=== PATIENT | female | born 1945 | race Asian ===

== ENCOUNTER 2018-11-06 05:30 | Day surgery (SDC) | payer OTHER ==
[~2018-11-06] VITALS: Ht 152.4 cm; Wt 65.0 kg
[~2018-11-06 05:30] MED LIST: AMLO10TA55 PO; ASPI81 PO; BENA20 PO; SIMV-261 PO
[2018-11-06] MEDS ORDERED: POVIDONE-IODINE 10% 15 ML SOLUTION UD TP ONE (05:31)
[2018-11-06] MEDS ORDERED: TETRACAINE HCL VISCOUS 0.5% 0.6 ML OPHTHALMIC SOLUTION OU ONE (05:31)
[2018-11-06] MEDS ORDERED: FentaNYL CITRATE-PF 100 MCG/2 ML VIAL IVP ONE (05:31)
[2018-11-06] MEDS ORDERED: HYALURONATE SOD/CHONDROITIN SOD 0.5 ML VIAL IO ONE (05:31)
[2018-11-06] MEDS ORDERED: DEXAMETHASONE SOD PHOS 4 MG/ML VIAL IVP ONE (05:31)
[2018-11-06] MEDS ORDERED: MIDAZOLAM HCL 2 MG/2 ML VIAL IVP ONE (05:31)
[2018-11-06] MEDS ORDERED: HYALURONATE SODIUM 12 MG/ML 0.8 ML SYRINGE IO ONE (05:31)
[2018-11-06] MEDS ORDERED: LIDOCAINE/PF 1% 2 ML VIAL IARTIC ONE (05:31)
[2018-11-06] MEDS ORDERED: MOXIFLOXACIN HCL 0.5% 3 ML OPHTHALMIC SOLUTION OS ONE (06:00)
[2018-11-06] MEDS ORDERED: DICLOFENAC SODIUM 0.1% 2.5 ML OPHTHALMIC SOLUTION OS ONE (06:00)
[2018-11-06] MEDS ORDERED: RINGERS SOLUTION,LACTATED 500 ML IV ONE ×2 (06:00→06:03)
[2018-11-06] MEDS ORDERED: 0.9% SODIUM CHLORIDE 10 ML SYRINGE IVP PRN (06:00)
[2018-11-06] MEDS ORDERED: DICLOFENAC SODIUM 0.1% 2.5 ML OPHTHALMIC SOLUTION ONE (06:27)
[2018-11-06] MEDS ORDERED: MOXIFLOXACIN HCL 0.5% 3 ML OPHTHALMIC SOLUTION ONE (06:28)
[2018-11-06] MEDS ORDERED: TROPICAMIDE 1% 2 ML OPHTHALMIC SOLUTION ONE (06:28)
[2018-11-06] MEDS ORDERED: PHENYLEPHRINE HCL 2.5% 2 ML OPHTHALMIC SOLUTION ONE (06:28)
[2018-11-06] MEDS: TROPICAMIDE 1% 2 ML OPHTHALMIC SOLUTION OS SCH ×2 (06:42→06:48)
[2018-11-06] MEDS: PHENYLEPHRINE HCL 2.5% 2 ML OPHTHALMIC SOLUTION OS SCH ×2 (06:42→06:49)
== END 2018-11-06 10:15 | disposition home or self-care (01) ==
LOC: SURGERY 05:30
PROVIDERS: ATTEND Specialist
DX: H25.12 Age-related nuclear cataract, left eye (principal); E78.00 Pure hypercholesterolemia, unspecified; I10 Essential (primary) hypertension; H25.13 Age-related nuclear cataract, bilateral; M17.10 Unilateral primary osteoarthritis, unspecified knee; Z79.82 Long term (current) use of aspirin
CPT/HCPCS: 66984; 93005; C1780; J1100; J2250; J3010; J3490 ×2; J7120

== ENCOUNTER → 2019-11-27 | Outpatient (CLI) | payer OTHER ==
[~2019-11-27] MED LIST changes: +ASPI-728 PO; -ASPI81 PO; -BENA20 PO; +BENA20TA11 PO
== END | disposition home or self-care (01) ==
LOC: PUC 14:09
DX: N39.0 Urinary tract infection, site not specified (principal)
CPT/HCPCS: 87086

== ENCOUNTER 2022-11-16 10:19 | Emergency (ER) | payer OTHER ==
[~2022-11-16] VITALS: Ht 152.4 cm; Wt 59.1 kg
[~2022-11-16 10:19] MED LIST changes: +ASPI-1450 PO; -ASPI-728 PO; -BENA20TA11 PO; +BENA20TA83 PO
[2022-11-16] MEDS ORDERED: LETR2.5 PO (10:23)
[2022-11-16] MEDS ORDERED: ATOR20TA86 PO (10:23)
[2022-11-16] MEDS ORDERED: CALC-1124 PO (10:23)
[2022-11-16] MEDS ORDERED: ACETAMINOPHEN 500 MG TABLET PO ONE (10:45)
[2022-11-16] MEDS ORDERED: LIDOCAINE 5% TRANSDERMAL PATCH TD ONE (10:45)
[2022-11-16 10:55] LABS: APPEARANCE,URINE CLEAR (CLEAR); BILIRUBIN,URINE NEGATIVE (NEGATIVE); GLUCOSE, URINE (UA) NEGATIVE (NEGATIVE); KETONES,URINE NEGATIVE (NEGATIVE); LEUKOCYTE ESTERASE ,URINE NEGATIVE (NEGATIVE); NITRATE,URINE NEGATIVE (NEGATIVE); OCCULT BLOOD,URINE NEGATIVE (NEGATIVE); PROTEIN,URINE NEGATIVE (NEGATIVE); SPECIFIC GRAVITIY, URINE 1.002 (1.003-1.030); UROBILINOGEN,URINE <=1.0 mg/dL (<=1.0)
[2022-11-16 11:11] LABS: BASOPHILS % (AUTO) 0.7 % (0.0-2.0); EOSINOPHILS % (AUTO) 2.6 % (1.0-6.0); HEMATOCRIT 44.6 % (36-46); HEMOGLOBIN 14.9 g/dL (12.0-16.0); LYMPHOCYTES # (AUTO) 2.3 K/uL (1.0-4.8); LYMPHOCYTES % (AUTO) 51.3 % (22.0-44.0); MEAN CORPUSCULAR HEMOGLOBIN 30.3 pg (26.0-34.0); MEAN CORPUSCULAR HGB CONC 33.4 G/dL (31.0-37.0); MEAN CORPUSCULAR VOLUME 91 fL (80-100); MONOCYTES # (AUTO) 0.5 K/uL (0.1-1.0); MONOCYTES % (AUTO) 10.8 % (2.0-9.0); NEUTROPHILS # (AUTO) 1.6 K/uL (1.8-7.7); NEUTROPHILS % (AUTO) 34.6 % (40.0-70.0); PLATELET COUNT (AUTO) 226 K/uL (150-450); RED BLOOD CELL COUNT(AUTO) 4.92 MIL/uL (4.00-5.20); RED CELL DISTRIBUTION WIDTH 13.5 % (11.5-14.5)
[2022-11-16 11:15] LABS: ANION GAP 9 mmol/L (8-16); CALCIUM, TOTAL 9.7 mg/dL (8.8-10.5); CARBON DIOXIDE 27 mmol/L (22-29); CHLORIDE 103 mmol/L (98-107); CREATININE 0.67 mg/dL (0.60-1.30); GLOMERULAR FILTR. RATE CALC > 60 mL/min (>60); GLUCOSE,RANDOM 99 mg/dL (70-110); POTASSIUM 3.7 mmol/L (3.5-5.1); SODIUM SERUM 139 mmol/L (136-145); UREA NITROGEN, BLOOD 16 mg/dL (7-18)
[2022-11-16 11:21] LABS: ALANINE AMINOTRANSFERASE 27 U/L (12-78); ALBUMIN 4.7 g/dL (3.4-5.0); ALKALINE PHOSPHATASE 62 U/L (46-116); ASPARTATE AMINOTRANSFERASE 23 U/L (15-37); TOTAL PROTEIN, SERUM 8.9 g/dL (6.4-8.2)
[2022-11-16 11:29] VITALS: BP 149/85
[2022-11-16] MEDS ORDERED: LIDO700A15 TP (11:30)
== END 2022-11-16 12:23 | disposition home or self-care (01) ==
LOC: EMS 10:20
DX: G57.00 Lesion of sciatic nerve, unspecified lower limb (principal); E78.00 Pure hypercholesterolemia, unspecified; I10 Essential (primary) hypertension; Z85.9 Personal history of malignant neoplasm, unspecified; Z87.440 Personal history of urinary (tract) infections; Z88.8 Allergy status to other drugs, medicaments and biological substances
CPT/HCPCS: 80053; 81003; 85025; 99283

== ENCOUNTER 2025-04-29 00:53 | Emergency (ER) | payer OTHER ==
[~2025-04-29] VITALS: Ht 147.3 cm; Wt 52.3 kg
[~2025-04-29 00:53] MED LIST changes: +ATOR20TA PO; +BENA-18 PO; -BENA20TA83 PO; +CALC-1124 PO; +LETR2.5 PO; +LIDO-57 TP; -SIMV-261 PO
[2025-04-29 00:56] VITALS: BP 162/81; PULSE 80; RESP 16; TEMP 97.9; O2SAT 98
== END 2025-04-29 03:45 | disposition left against medical advice (07) ==
LOC: EMS 00:54
DX: R19.7 Diarrhea, unspecified (principal); Z53.21 Procedure and treatment not carried out due to patient leaving prior to being seen by health care provider